=== PATIENT | male | born 1990 | race African-American/Black ===

== ENCOUNTER 2016-07-12 01:38 | Inpatient (IN) | payer MEDICAID, OTHER ==
[~2016-07-12] VITALS: Ht 175.3 cm; Wt 63.6 kg
[~2016-07-12 01:38] MED LIST: DIVA500T52 PO; DIVA500T69 PO; OLAN10TA6 PO; OLAN5Z PO; OMEP10 PO
[2016-07-12 02:07] LABS: BASOPHILS % (AUTO) 1.2 % (0.0-2.0); EOSINOPHILS % (AUTO) 2.7 % (1.0-6.0); HEMATOCRIT 44.4 % (41-53); HEMOGLOBIN 14.3 g/dL (13.5-17.5); LYMPHOCYTES # (AUTO) 3.4 K/uL (1.0-4.8); LYMPHOCYTES % (AUTO) 36.9 % (22.0-44.0); MEAN CORPUSCULAR HGB CONC 32.3 G/dL (31.0-37.0); MEAN CORPUSCULAR VOLUME 96 fL (80-100); MONOCYTES # (AUTO) 0.8 K/uL (0.1-1.0); MONOCYTES % (AUTO) 8.6 % (2.0-9.0); NEUTROPHILS # (AUTO) 4.7 K/uL (1.8-7.7); NEUTROPHILS % (AUTO) 50.6 % (40.0-70.0); PLATELET COUNT (AUTO) 141 K/uL (150-450); RED BLOOD CELL COUNT(AUTO) 4.63 MIL/uL (4.50-5.90); RED CELL DISTRIBUTION WIDTH 15.2 % (11.5-14.5); WHITE BLOOD COUNT (AUTO) 9.3 K/uL (4.5-11.0)
[2016-07-12 02:14] LABS: ANION GAP 7 mmol/L (8-16); CALCIUM, TOTAL 9.6 mg/dL (8.8-10.5); CARBON DIOXIDE 32 mmol/L (22-29); CHLORIDE 102 mmol/L (98-107); CREATININE 1.01 mg/dL (0.60-1.30); GLOMERULAR FILTR. RATE CALC > 60 mL/min (>60); POTASSIUM 4.3 mmol/L (3.5-5.1); SODIUM SERUM 141 mmol/L (136-145); UREA NITROGEN, BLOOD 13 mg/dL (7-18)
[2016-07-12 02:20] LABS: ALANINE AMINOTRANSFERASE 17 U/L (12-78); ALBUMIN 3.8 g/dL (3.4-5.0); ASPARTATE AMINOTRANSFERASE 16 U/L (15-37); BILIRUBIN,TOTAL 0.2 mg/dL (0.1-1.0); TOTAL PROTEIN, SERUM 7.9 g/dL (6.4-8.2); VALPROIC ACID 16 mcg/mL (50-100)
[2016-07-12] MEDS ORDERED: HALOPERIDOL 5 MG TABLET PO PRN (05:15)
[2016-07-12 05:58] LABS: APPEARANCE,URINE CLOUDY (CLEAR); GLUCOSE, URINE (UA) NEGATIVE (NEGATIVE); KETONES,URINE NEGATIVE (NEGATIVE); LEUKOCYTE ESTERASE ,URINE MODERATE (NEGATIVE); OCCULT BLOOD,URINE NEGATIVE (NEGATIVE); PH,URINE 6.5 (5.0-8.0); PROTEIN,URINE NEGATIVE (NEGATIVE)
[2016-07-12 06:02] LABS: ADD UA MICROSCOPIC YES
[2016-07-12 06:13] LABS: RBC,URINE 0-2 /HPF (0-2); SQUAMOUS EPITHELIAL CELL,UR Few /LPF (None Seen)
[2016-07-12] MEDS ORDERED: INFLUENZA VIRUS VACCINE QVS 2016-17 (3YR+)/PF 60 MCG/0.5 ML SYRINGE IM ONE (07:30)
[2016-07-12 07:33] VITALS: BP 121/72
[2016-07-12] MEDS: DIVALPROEX SODIUM 500 MG DR TABLET PO SCH (16:17)
[2016-07-12] MEDS: LEVOFLOXACIN 250 MG TABLET PO SCH (16:17)
[2016-07-12 16:18] VITALS: BP 119/66
[2016-07-12] MEDS: OLANZapine 10 MG TABLET PO SCH (22:01)
[2016-07-12] MEDS: ZOLPIDEM TARTRATE 10 MG TABLET PO PRN (22:01)
[2016-07-13 06:53] VITALS: BP 123/70
[2016-07-13 08:42] VITALS: BP 112/67
[2016-07-13] MEDS: DIVALPROEX SODIUM 500 MG DR TABLET PO SCH ×3 (09:43→17:00)
[2016-07-13] MEDS: LEVOFLOXACIN 250 MG TABLET PO SCH (09:43)
[2016-07-13] MEDS: LORazepam 2 MG TABLET PO PRN ×2 (09:43→20:21)
[2016-07-13 16:00] VITALS: BP 128/73
[2016-07-13] MEDS: ZOLPIDEM TARTRATE 10 MG TABLET PO PRN (20:21)
[2016-07-13] MEDS: OLANZapine 10 MG TABLET PO SCH (20:21)
[2016-07-14 06:33] VITALS: BP 109/63
[2016-07-14] MEDS: DIVALPROEX SODIUM 500 MG DR TABLET PO SCH ×3 (09:44→16:04)
[2016-07-14] MEDS: LEVOFLOXACIN 250 MG TABLET PO SCH (09:44)
[2016-07-14] MEDS: LORazepam 2 MG TABLET PO PRN ×2 (09:44→15:47)
[2016-07-14 16:00] VITALS: BP 127/79
[2016-07-14] MEDS: OLANZapine 10 MG TABLET PO SCH (20:43)
[2016-07-15 06:58] VITALS: BP 106/68
[2016-07-15] MEDS: LEVOFLOXACIN 250 MG TABLET PO SCH (08:09)
[2016-07-15] MEDS: DIVALPROEX SODIUM 500 MG DR TABLET PO SCH ×3 (08:09→17:09)
[2016-07-15] MEDS: LORazepam 2 MG TABLET PO PRN (08:09)
[2016-07-15 08:16] VITALS: BP 127/82
[2016-07-15] MEDS ORDERED: DIVA500T35 PO (15:12)
[2016-07-15] MEDS ORDERED: LEVO250 PO (15:13)
== END 2016-07-15 17:00 | disposition home or self-care (01) | DRG 750 ==
LOC: EMS 01:39 → B3A 05:00
PROVIDERS: ADMIT Psychiatry & Neurology Psychiatry; ATTEND Psychiatry & Neurology Psychiatry
DX: F20.0 Paranoid schizophrenia (principal); D69.6 Thrombocytopenia, unspecified; N39.0 Urinary tract infection, site not specified; J30.9 Allergic rhinitis, unspecified; K21.9 Gastro-esophageal reflux disease without esophagitis; F19.10 Other psychoactive substance abuse, uncomplicated; F12.10 Cannabis abuse, uncomplicated; Z79.899 Other long term (current) drug therapy
CPT/HCPCS: 87086; 90471; 99285; G0480

== ENCOUNTER 2019-07-17 15:13 | Inpatient (IN) | payer MEDICAID ==
[~2019-07-17] VITALS: Ht 175.3 cm; Wt 65.1 kg
[~2019-07-17 15:13] MED LIST changes: +DIVA-78 PO; -DIVA500T52 PO; -DIVA500T69 PO; +LEVO250T75 PO; -OLAN10TA6 PO; +OLAN5TAB40 PO; -OLAN5Z PO; -OMEP10 PO
[2019-07-17 15:16] VITALS: BP 133/91
[2019-07-17] MEDS ORDERED: QUET200T PO (16:17)
[2019-07-17 16:36] VITALS: BP 129/87
[2019-07-17] MEDS: LORazepam 2 MG TABLET PO PRN ×2 (17:17→21:17)
[2019-07-17] MEDS: HALOPERIDOL 5 MG TABLET PO PRN (17:18)
[2019-07-17] MEDS: ZOLPIDEM TARTRATE 10 MG TABLET PO PRN (20:32)
[2019-07-18 07:44] LABS: BASOPHILS % (AUTO) 0.5 % (0.0-2.0); EOSINOPHILS % (AUTO) 3.7 % (1.0-6.0); HEMATOCRIT 40.2 % (41-53); HEMOGLOBIN 13.3 g/dL (13.5-17.5); LYMPHOCYTES # (AUTO) 2.6 K/uL (1.0-4.8); LYMPHOCYTES % (AUTO) 50.9 % (22.0-44.0); MEAN CORPUSCULAR HEMOGLOBIN 30.4 pg (26.0-34.0); MEAN CORPUSCULAR HGB CONC 33.2 G/dL (31.0-37.0); MEAN CORPUSCULAR VOLUME 92 fL (80-100); MONOCYTES # (AUTO) 0.5 K/uL (0.1-1.0); MONOCYTES % (AUTO) 10.2 % (2.0-9.0); NEUTROPHILS # (AUTO) 1.8 K/uL (1.8-7.7); NEUTROPHILS % (AUTO) 34.7 % (40.0-70.0); PLATELET COUNT (AUTO) 183 K/uL (150-450); RED BLOOD CELL COUNT(AUTO) 4.38 MIL/uL (4.50-5.90); RED CELL DISTRIBUTION WIDTH 13.8 % (11.5-14.5)
[2019-07-18 08:09] VITALS: BP 117/66
[2019-07-18 08:18] LABS: ALANINE AMINOTRANSFERASE 16 U/L (12-78); ALBUMIN 3.5 g/dL (3.4-5.0); ALKALINE PHOSPHATASE 72 U/L (46-116); ANION GAP 7 mmol/L (8-16); ASPARTATE AMINOTRANSFERASE 13 U/L (15-37); BILIRUBIN,TOTAL 0.3 mg/dL (0.1-1.0); CALCIUM, TOTAL 9.4 mg/dL (8.8-10.5); CARBON DIOXIDE 29 mmol/L (22-29); CHLORIDE 104 mmol/L (98-107); CHOLESTEROL 125 mg/dL (131-200); CREATININE 0.98 mg/dL (0.60-1.30); FREE T4 (FREE THYROXINE) 0.96 ng/dL (0.76-1.46); GLOMERULAR FILTR. RATE CALC > 60 mL/min (>60); GLUCOSE,RANDOM 82 mg/dL (70-110); HDL CHOLESTEROL 61 mg/dL (40-60); LDL CHOL (CALC.) 59 mg/dL (0-130); POTASSIUM 4.8 mmol/L (3.5-5.1); SODIUM SERUM 140 mmol/L (136-145); THYROID STIMULATING HORMONE 1.05 uIU/mL (0.36-3.74); TOTAL PROTEIN, SERUM 6.5 g/dL (6.4-8.2); TRIGLYCERIDES 24 mg/dL (15-150); UREA NITROGEN, BLOOD 10 mg/dL (7-18)
[2019-07-18] MEDS ORDERED: IBUPROFEN 600 MG TABLET PO PRN (09:00)
[2019-07-18] MEDS ORDERED: BENZOCAINE/MENTHOL LOZENGE MM PRN (09:00)
[2019-07-18] MEDS ORDERED: BACITRACIN 28.4 GM OINTMENT TP PRN (09:00)
[2019-07-18] MEDS ORDERED: ONDANSETRON HCL 4 MG TABLET PO PRN (09:00)
[2019-07-18] MEDS ORDERED: DOCUSATE SODIUM 100 MG CAPSULE PO PRN (09:00)
[2019-07-18] MEDS ORDERED: ALBUTEROL SULFATE HFA 90 MCG/PUFF 8 GM INHALER IH PRN (09:00)
[2019-07-18] MEDS ORDERED: PETROLATUM,WHITE 28 GM JELLY TP PRN (09:00)
[2019-07-18] MEDS ORDERED: LOPERAMIDE HCL 2 MG CAPSULE PO PRN (09:00)
[2019-07-18] MEDS ORDERED: MAGNESIUM HYDROXIDE SUSPENSION 30 ML UDCUP PO PRN (09:00)
[2019-07-18] MEDS ORDERED: CloNIDine HCL 0.1 MG TABLET PO PRN (09:00)
[2019-07-18] MEDS ORDERED: ACETAMINOPHEN 325 MG TABLET PO PRN (09:00)
[2019-07-18] MEDS ORDERED: MAG HYDROX/AL HYDROX/SIMETH ES 30 ML SUSPENSION UDCUP PO PRN (09:00)
[2019-07-18] MEDS ORDERED: OMEPRAZOLE 20 MG CAPSULE PO PRN (09:00)
[2019-07-18] MEDS ORDERED: RisperiDONE MICROSPHERES 50 MG/2 ML SYRINGE IM ONE (11:15)
[2019-07-18] MEDS: LORazepam 2 MG TABLET PO PRN ×2 (11:45→16:38)
[2019-07-18] MEDS: HALOPERIDOL 5 MG TABLET PO PRN ×2 (11:45→16:38)
[2019-07-18] MEDS ORDERED: LORazepam 2 MG/ML VIAL IM ONE (13:00)
[2019-07-18] MEDS ORDERED: DiphenhydrAMINE HCL 50 MG/ML VIAL IM ONE (13:00)
[2019-07-18] MEDS ORDERED: HALOPERIDOL LACTATE 5 MG/ML VIAL IM ONE (13:00)
[2019-07-18 16:04] VITALS: BP 127/87
[2019-07-18] MEDS: BENZTROPINE MESYLATE 1 MG TABLET PO SCH (16:37)
[2019-07-18] MEDS: DIVALPROEX SODIUM 500 MG DR TABLET PO SCH (16:38)
[2019-07-18] MEDS: QUEtiapine FUMARATE 200 MG TABLET PO SCH (21:00)
[2019-07-18] MEDS: TraZODone HCL 50 MG TABLET PO SCH (21:00)
[2019-07-18] MEDS: HALOPERIDOL 10 MG TABLET PO SCH (21:00)
[2019-07-18] MEDS: OLANZapine 10 MG TABLET PO SCH (21:00)
[2019-07-19 05:44] VITALS: BP 112/68
[2019-07-19 08:27] VITALS: BP 114/70
[2019-07-19] MEDS: BENZTROPINE MESYLATE 1 MG TABLET PO SCH ×2 (08:39→16:06)
[2019-07-19] MEDS: DIVALPROEX SODIUM 500 MG DR TABLET PO SCH ×2 (08:39→16:06)
[2019-07-19] MEDS: LORazepam 2 MG TABLET PO PRN (16:06)
[2019-07-19 16:59] VITALS: BP 123/75
[2019-07-19] MEDS: OLANZapine 10 MG TABLET PO SCH (20:00)
[2019-07-19] MEDS: HALOPERIDOL 10 MG TABLET PO SCH (20:00)
[2019-07-19] MEDS: TraZODone HCL 50 MG TABLET PO SCH (20:00)
[2019-07-19] MEDS: QUEtiapine FUMARATE 200 MG TABLET PO SCH (20:00)
[2019-07-19] MEDS ORDERED: DiphenhydrAMINE HCL 50 MG/ML VIAL ONE (20:12)
[2019-07-19] MEDS ORDERED: HALOPERIDOL LACTATE 5 MG/ML VIAL ONE (20:12)
[2019-07-19] MEDS ORDERED: LORazepam 2 MG/ML VIAL ONE (20:13)
[2019-07-19] MEDS ORDERED: DiphenhydrAMINE HCL 50 MG/ML VIAL IM ONE (20:15)
[2019-07-19] MEDS ORDERED: HALOPERIDOL LACTATE 5 MG/ML VIAL IM ONE (20:15)
[2019-07-19] MEDS ORDERED: LORazepam 2 MG/ML VIAL IM ONE (20:15)
[2019-07-20 05:33] VITALS: BP 117/82
[2019-07-20] MEDS: BENZTROPINE MESYLATE 1 MG TABLET PO SCH ×2 (08:38→16:19)
[2019-07-20] MEDS: DIVALPROEX SODIUM 500 MG DR TABLET PO SCH ×2 (08:38→16:18)
[2019-07-20 08:39] VITALS: BP 127/68
[2019-07-20] MEDS: LORazepam 2 MG TABLET PO PRN ×2 (12:47→21:33)
[2019-07-20] MEDS: HALOPERIDOL 5 MG TABLET PO PRN (12:47)
[2019-07-20 16:00] VITALS: BP 140/78
[2019-07-20] MEDS: TraZODone HCL 50 MG TABLET PO SCH (20:38)
[2019-07-20] MEDS: HALOPERIDOL 10 MG TABLET PO SCH (20:38)
[2019-07-20] MEDS: QUEtiapine FUMARATE 200 MG TABLET PO SCH (20:38)
[2019-07-20] MEDS: OLANZapine 10 MG TABLET PO SCH (20:39)
[2019-07-20] MEDS: ZOLPIDEM TARTRATE 10 MG TABLET PO PRN (21:33)
[2019-07-21] MEDS: HALOPERIDOL 5 MG TABLET PO PRN (09:12)
[2019-07-21] MEDS: BENZTROPINE MESYLATE 1 MG TABLET PO SCH ×2 (09:12→16:14)
[2019-07-21] MEDS: LORazepam 2 MG TABLET PO PRN ×2 (09:12→16:14)
[2019-07-21] MEDS: DIVALPROEX SODIUM 500 MG DR TABLET PO SCH ×2 (09:12→16:14)
[2019-07-21 13:53] VITALS: BP 126/97
[2019-07-21 14:35] VITALS: BP 117/81
[2019-07-21 14:54] VITALS: BP 117/81
[2019-07-21 15:09] VITALS: BP 119/54
[2019-07-21 15:24] VITALS: BP 154/96
[2019-07-21 16:00] VITALS: BP 132/85
[2019-07-21] MEDS: TraZODone HCL 50 MG TABLET PO SCH (20:03)
[2019-07-21] MEDS: HALOPERIDOL 10 MG TABLET PO SCH (20:03)
[2019-07-21] MEDS: QUEtiapine FUMARATE 200 MG TABLET PO SCH (20:03)
[2019-07-21] MEDS: OLANZapine 10 MG TABLET PO SCH (20:03)
[2019-07-22] MEDS ORDERED: TRAZ-184 PO (05:55)
[2019-07-22] MEDS ORDERED: HALO10 PO (05:55)
[2019-07-22] MEDS ORDERED: BENZ1TAB10 PO (05:55)
[2019-07-22] MEDS ORDERED: OLAN10TA3 PO (05:55)
[2019-07-22] MEDS ORDERED: DIVA-78 PO (05:55)
[2019-07-22 08:18] VITALS: BP 128/72
[2019-07-22] MEDS: BENZTROPINE MESYLATE 1 MG TABLET PO SCH ×2 (08:57→16:21)
[2019-07-22] MEDS: DIVALPROEX SODIUM 500 MG DR TABLET PO SCH ×2 (08:57→16:21)
[2019-07-22] MEDS: HALOPERIDOL 5 MG TABLET PO PRN ×2 (11:10→16:21)
[2019-07-22 16:06] VITALS: BP 140/73
[2019-07-22] MEDS: LORazepam 2 MG TABLET PO PRN ×2 (16:21→20:33)
[2019-07-22] MEDS: OLANZapine 10 MG TABLET PO SCH (20:32)
[2019-07-22] MEDS: HALOPERIDOL 10 MG TABLET PO SCH (20:32)
[2019-07-22] MEDS: TraZODone HCL 50 MG TABLET PO SCH (20:32)
[2019-07-22] MEDS: QUEtiapine FUMARATE 200 MG TABLET PO SCH (20:32)
[2019-07-23 00:05] VITALS: BP 115/95
[2019-07-23 08:17] VITALS: BP 110/65
[2019-07-23] MEDS: DIVALPROEX SODIUM 500 MG DR TABLET PO SCH ×2 (08:43→17:30)
[2019-07-23] MEDS: BENZTROPINE MESYLATE 1 MG TABLET PO SCH ×2 (08:43→17:30)
[2019-07-23] MEDS: HALOPERIDOL 5 MG TABLET PO PRN (08:43)
[2019-07-23] MEDS: LORazepam 2 MG TABLET PO PRN (08:43)
[2019-07-23 16:10] VITALS: BP 152/78
[2019-07-23] MEDS ORDERED: INSULIN LISPRO 100 UNITS/ML SQ PRN (17:30)
[2019-07-23] MEDS ORDERED: GLUCAGON,HUMAN RECOMBINANT 1 MG VIAL IM PRN (17:30)
[2019-07-23] MEDS: QUEtiapine FUMARATE 200 MG TABLET PO SCH (21:13)
[2019-07-23] MEDS: HALOPERIDOL 10 MG TABLET PO SCH (21:13)
[2019-07-23] MEDS: OLANZapine 10 MG TABLET PO SCH (21:14)
[2019-07-23] MEDS: TraZODone HCL 50 MG TABLET PO SCH (21:14)
[2019-07-23 21:33] LABS: GLUCOMETER DEV NAME(LOC) BV3S.; GLUCOSE,POINT OF CARE 131 MG/DL (70-110)
[2019-07-24 01:00] VITALS: BP 128/86
[2019-07-24] MEDS: ZOLPIDEM TARTRATE 10 MG TABLET PO PRN (01:01)
[2019-07-24 05:46] VITALS: BP 132/63
[2019-07-24] MEDS: DIVALPROEX SODIUM 500 MG DR TABLET PO SCH ×2 (08:11→16:13)
[2019-07-24] MEDS: BENZTROPINE MESYLATE 1 MG TABLET PO SCH ×2 (08:11→16:13)
[2019-07-24 08:16] VITALS: BP 126/82
[2019-07-24 11:27] LABS: GLUCOMETER DEV NAME(LOC) BV3S.; GLUCOSE,POINT OF CARE 68 MG/DL (70-110)
[2019-07-24 16:04] VITALS: BP 117/74
[2019-07-24] MEDS: LORazepam 2 MG TABLET PO PRN (16:13)
[2019-07-24] MEDS: HALOPERIDOL 5 MG TABLET PO PRN (16:13)
[2019-07-24 17:09] LABS: GLUCOMETER DEV NAME(LOC) BV3S.; GLUCOSE,POINT OF CARE 114 MG/DL (70-110)
[2019-07-24] MEDS: HALOPERIDOL 10 MG TABLET PO SCH (20:29)
[2019-07-24] MEDS: QUEtiapine FUMARATE 200 MG TABLET PO SCH (20:29)
[2019-07-24] MEDS: OLANZapine 10 MG TABLET PO SCH (20:29)
[2019-07-24] MEDS: TraZODone HCL 50 MG TABLET PO SCH (20:30)
[2019-07-24 21:19] LABS: GLUCOMETER DEV NAME(LOC) BV3S.; GLUCOSE,POINT OF CARE 103 MG/DL (70-110)
[2019-07-25 05:50] VITALS: BP 121/78
[2019-07-25 08:30] VITALS: BP 133/96
[2019-07-25] MEDS: DIVALPROEX SODIUM 500 MG DR TABLET PO SCH ×2 (08:40→16:11)
[2019-07-25] MEDS: BENZTROPINE MESYLATE 1 MG TABLET PO SCH ×2 (08:40→16:11)
[2019-07-25 11:10] LABS: GLUCOMETER DEV NAME(LOC) BV3S.; GLUCOSE,POINT OF CARE 110 MG/DL (70-110)
[2019-07-25 16:00] VITALS: BP 137/90
[2019-07-25] MEDS: LORazepam 2 MG TABLET PO PRN (16:11)
[2019-07-25] MEDS: HALOPERIDOL 5 MG TABLET PO PRN (16:11)
[2019-07-25] MEDS: QUEtiapine FUMARATE 200 MG TABLET PO SCH (20:29)
[2019-07-25] MEDS: HALOPERIDOL 10 MG TABLET PO SCH (20:30)
[2019-07-25] MEDS: TraZODone HCL 50 MG TABLET PO SCH (20:30)
[2019-07-25] MEDS: OLANZapine 10 MG TABLET PO SCH (20:30)
[2019-07-26] MEDS: DIVALPROEX SODIUM 500 MG DR TABLET PO SCH ×2 (08:57→16:18)
[2019-07-26] MEDS: BENZTROPINE MESYLATE 1 MG TABLET PO SCH ×2 (08:57→16:19)
[2019-07-26 10:06] VITALS: BP 122/82
== END 2019-07-26 17:30 | disposition home or self-care (01) | DRG 750 ==
LOC: B3A 15:58
PROVIDERS: ADMIT Psychiatry & Neurology Psychiatry; ATTEND Psychiatry & Neurology Psychiatry
DX: F20.0 Paranoid schizophrenia (principal); F41.9 Anxiety disorder, unspecified; G47.00 Insomnia, unspecified; K59.00 Constipation, unspecified
CPT/HCPCS: 83036; 84439; 84443; J1200; J1630; J2060; J2794

== ENCOUNTER 2019-12-10 17:21 | Inpatient (IN) | payer MEDICAID, OTHER ==
[~2019-12-10] VITALS: Ht 172.7 cm; Wt 69.9 kg
[~2019-12-10 17:21] MED LIST changes: +BENZ1TAB10 PO; +DIVA-112 PO; -DIVA-78 PO; +HALO10 PO; -LEVO250T75 PO; +OLAN10TA3 PO; -OLAN5TAB40 PO; +QUET200T PO; +TRAZ-184 PO
[2019-12-10 18:52] LABS: BASOPHILS % (AUTO) 0.9 % (0.0-2.0); EOSINOPHILS % (AUTO) 3.3 % (1.0-6.0); HEMATOCRIT 39.3 % (41-53); HEMOGLOBIN 13.1 g/dL (13.5-17.5); LYMPHOCYTES # (AUTO) 3.1 K/uL (1.0-4.8); LYMPHOCYTES % (AUTO) 41.1 % (22.0-44.0); MEAN CORPUSCULAR HEMOGLOBIN 31.2 pg (26.0-34.0); MEAN CORPUSCULAR HGB CONC 33.3 G/dL (31.0-37.0); MEAN CORPUSCULAR VOLUME 94 fL (80-100); MONOCYTES # (AUTO) 0.5 K/uL (0.1-1.0); MONOCYTES % (AUTO) 6.6 % (2.0-9.0); NEUTROPHILS # (AUTO) 3.7 K/uL (1.8-7.7); NEUTROPHILS % (AUTO) 48.1 % (40.0-70.0); PLATELET COUNT (AUTO) 168 K/uL (150-450); RED CELL DISTRIBUTION WIDTH 13.6 % (11.5-14.5)
[2019-12-10] MEDS ORDERED: HALOPERIDOL LACTATE 5 MG/ML VIAL IM ONE (19:00)
[2019-12-10] MEDS ORDERED: DiphenhydrAMINE HCL 50 MG/ML VIAL IM ONE (19:00)
[2019-12-10] MEDS ORDERED: LORazepam 2 MG/ML VIAL IM ONE (19:00)
[2019-12-10 19:07] LABS: ANION GAP 4 mmol/L (8-16); CALCIUM, TOTAL 9.3 mg/dL (8.8-10.5); CARBON DIOXIDE 31 mmol/L (22-29); CHLORIDE 104 mmol/L (98-107); CREATININE 0.97 mg/dL (0.60-1.30); GLOMERULAR FILTR. RATE CALC > 60 mL/min (>60); GLUCOSE,RANDOM 105 mg/dL (70-110); POTASSIUM 4.1 mmol/L (3.5-5.1); SODIUM SERUM 139 mmol/L (136-145); UREA NITROGEN, BLOOD 9 mg/dL (7-18)
[2019-12-10 19:15] LABS: ALANINE AMINOTRANSFERASE 21 U/L (12-78); ALBUMIN 3.6 g/dL (3.4-5.0); ALKALINE PHOSPHATASE 73 U/L (46-116); ASPARTATE AMINOTRANSFERASE 25 U/L (15-37); BILIRUBIN,TOTAL 0.1 mg/dL (0.1-1.0); TOTAL PROTEIN, SERUM 7.1 g/dL (6.4-8.2)
[2019-12-10 21:06] VITALS: BP 135/71
[2019-12-11 05:20] VITALS: BP 126/70
[2019-12-11 08:30] VITALS: BP 125/83
[2019-12-11] MEDS: HALOPERIDOL 5 MG TABLET PO PRN ×2 (09:07→16:39)
[2019-12-11] MEDS: LORazepam 2 MG TABLET PO PRN ×2 (09:07→16:39)
[2019-12-11 16:09] VITALS: BP 131/91
[2019-12-11] MEDS: DIVALPROEX SODIUM 500 MG DR TABLET PO SCH (16:39)
[2019-12-11] MEDS: BENZTROPINE MESYLATE 1 MG TABLET PO SCH (16:39)
[2019-12-11] MEDS: QUEtiapine FUMARATE 200 MG TABLET PO SCH (20:25)
[2019-12-11] MEDS: OLANZapine 10 MG TABLET PO SCH (20:25)
[2019-12-11] MEDS: TraZODone HCL 50 MG TABLET PO SCH (20:25)
[2019-12-12 06:18] VITALS: BP 115/78
[2019-12-12 08:09] LABS: CHOL/HDL RATIO 2.4 (4.2-7.3)
[2019-12-12] MEDS: DIVALPROEX SODIUM 500 MG DR TABLET PO SCH ×2 (08:38→16:41)
[2019-12-12] MEDS: BENZTROPINE MESYLATE 1 MG TABLET PO SCH ×2 (08:38→16:42)
[2019-12-12] MEDS: LORazepam 2 MG TABLET PO PRN ×2 (08:38→16:42)
[2019-12-12 08:45] VITALS: BP 114/69
[2019-12-12 16:14] VITALS: BP 110/73
[2019-12-12] MEDS: HALOPERIDOL 5 MG TABLET PO PRN (16:42)
[2019-12-12] MEDS: OLANZapine 10 MG TABLET PO SCH (20:13)
[2019-12-12] MEDS: QUEtiapine FUMARATE 200 MG TABLET PO SCH (20:14)
[2019-12-12] MEDS: TraZODone HCL 50 MG TABLET PO SCH (20:14)
[2019-12-13 06:20] VITALS: BP 114/70
[2019-12-13] MEDS: HALOPERIDOL 5 MG TABLET PO PRN ×2 (08:08→13:07)
[2019-12-13] MEDS: DIVALPROEX SODIUM 500 MG DR TABLET PO SCH ×2 (08:08→16:26)
[2019-12-13] MEDS: LORazepam 2 MG TABLET PO PRN ×3 (08:08→18:11)
[2019-12-13] MEDS: BENZTROPINE MESYLATE 1 MG TABLET PO SCH ×2 (08:09→16:26)
[2019-12-13 08:19] VITALS: BP 124/86
[2019-12-13] MEDS ORDERED: RisperiDONE MICROSPHERES 50 MG/2 ML SYRINGE IM SCH (14:30)
[2019-12-13 16:40] VITALS: BP 138/90
[2019-12-13] MEDS: OLANZapine 10 MG TABLET PO SCH (20:58)
[2019-12-13] MEDS: TraZODone HCL 50 MG TABLET PO SCH (20:58)
[2019-12-13] MEDS: QUEtiapine FUMARATE 200 MG TABLET PO SCH (20:58)
[2019-12-14] MEDS: LORazepam 2 MG TABLET PO PRN (08:20)
[2019-12-14] MEDS: BENZTROPINE MESYLATE 1 MG TABLET PO SCH ×2 (08:20→16:38)
[2019-12-14] MEDS: DIVALPROEX SODIUM 500 MG DR TABLET PO SCH ×2 (08:20→16:38)
[2019-12-14 08:36] VITALS: BP 132/87
[2019-12-14 16:15] VITALS: BP 130/81
[2019-12-14] MEDS: TraZODone HCL 50 MG TABLET PO SCH (20:19)
[2019-12-14] MEDS: QUEtiapine FUMARATE 200 MG TABLET PO SCH (20:19)
[2019-12-14] MEDS: OLANZapine 10 MG TABLET PO SCH (20:20)
[2019-12-15 05:27] VITALS: BP 122/72
[2019-12-15 08:28] VITALS: BP 125/75
[2019-12-15] MEDS: DIVALPROEX SODIUM 500 MG DR TABLET PO SCH ×2 (08:45→16:12)
[2019-12-15] MEDS: BENZTROPINE MESYLATE 1 MG TABLET PO SCH ×2 (08:45→16:13)
[2019-12-15] MEDS: LORazepam 2 MG TABLET PO PRN ×2 (08:45→16:13)
[2019-12-15] MEDS: HALOPERIDOL 5 MG TABLET PO PRN (13:00)
[2019-12-15 16:28] VITALS: BP 142/87
[2019-12-15] MEDS: QUEtiapine FUMARATE 200 MG TABLET PO SCH (20:06)
[2019-12-15] MEDS: OLANZapine 10 MG TABLET PO SCH (20:07)
[2019-12-15] MEDS: TraZODone HCL 50 MG TABLET PO SCH (20:07)
[2019-12-16 08:21] VITALS: BP 128/74
[2019-12-16] MEDS: MULTIVITAMINS WITH IRON TABLET PO SCH (09:28)
[2019-12-16] MEDS: DIVALPROEX SODIUM 500 MG DR TABLET PO SCH ×2 (09:28→16:01)
[2019-12-16] MEDS: BENZTROPINE MESYLATE 1 MG TABLET PO SCH ×2 (09:28→16:01)
[2019-12-16] MEDS: HALOPERIDOL 5 MG TABLET PO PRN (16:01)
[2019-12-16] MEDS: LORazepam 2 MG TABLET PO PRN (16:01)
[2019-12-16 16:17] VITALS: BP 123/82
[2019-12-16] MEDS: OLANZapine 10 MG TABLET PO SCH (20:45)
[2019-12-16] MEDS: QUEtiapine FUMARATE 200 MG TABLET PO SCH (20:46)
[2019-12-16] MEDS: TraZODone HCL 50 MG TABLET PO SCH (20:49)
[2019-12-17 01:43] VITALS: BP 120/97
[2019-12-17] MEDS: LORazepam 2 MG TABLET PO PRN ×2 (02:59→16:21)
[2019-12-17] MEDS: ZOLPIDEM TARTRATE 10 MG TABLET PO PRN ×2 (02:59→20:31)
[2019-12-17] MEDS: MULTIVITAMINS WITH IRON TABLET PO SCH (08:34)
[2019-12-17] MEDS: BENZTROPINE MESYLATE 1 MG TABLET PO SCH ×2 (08:34→16:21)
[2019-12-17] MEDS: DIVALPROEX SODIUM 500 MG DR TABLET PO SCH ×2 (08:35→16:21)
[2019-12-17 12:30] VITALS: BP 127/67
[2019-12-17 17:35] VITALS: BP 139/85
[2019-12-17] MEDS: OLANZapine 10 MG TABLET PO SCH (20:31)
[2019-12-17] MEDS: QUEtiapine FUMARATE 200 MG TABLET PO SCH (20:31)
[2019-12-17] MEDS: TraZODone HCL 50 MG TABLET PO SCH (20:31)
[2019-12-18 03:49] VITALS: BP 124/68
[2019-12-18 09:51] VITALS: BP 136/98
[2019-12-18] MEDS: MULTIVITAMINS WITH IRON TABLET PO SCH (09:56)
[2019-12-18] MEDS: BENZTROPINE MESYLATE 1 MG TABLET PO SCH ×2 (09:56→16:24)
[2019-12-18] MEDS: DIVALPROEX SODIUM 500 MG DR TABLET PO SCH ×2 (09:56→16:24)
[2019-12-18 16:20] VITALS: BP 127/76
[2019-12-18] MEDS: HALOPERIDOL 5 MG TABLET PO PRN (16:24)
[2019-12-18] MEDS: LORazepam 2 MG TABLET PO PRN (16:24)
[2019-12-18] MEDS: OLANZapine 10 MG TABLET PO SCH (20:25)
[2019-12-18] MEDS: QUEtiapine FUMARATE 200 MG TABLET PO SCH (20:25)
[2019-12-18] MEDS: ZOLPIDEM TARTRATE 10 MG TABLET PO PRN (20:25)
[2019-12-18] MEDS: TraZODone HCL 50 MG TABLET PO SCH (20:25)
[2019-12-19 05:11] VITALS: BP 120/81
[2019-12-19] MEDS: DIVALPROEX SODIUM 500 MG DR TABLET PO SCH (08:22)
[2019-12-19] MEDS: BENZTROPINE MESYLATE 1 MG TABLET PO SCH (08:22)
[2019-12-19] MEDS: MULTIVITAMINS WITH IRON TABLET PO SCH (08:22)
[2019-12-19 08:29] VITALS: BP 142/82
[2019-12-19] MEDS ORDERED: RISPC50 IM (11:04)
== END 2019-12-19 13:00 | disposition home or self-care (01) | DRG 885 ==
LOC: EMS 17:26 → B3A 21:00
PROVIDERS: ADMIT Psychiatry & Neurology Psychiatry; ATTEND Psychiatry & Neurology Psychiatry
DX: F20.0 Paranoid schizophrenia (principal); F12.90 Cannabis use, unspecified, uncomplicated; D64.9 Anemia, unspecified; K21.9 Gastro-esophageal reflux disease without esophagitis; D69.6 Thrombocytopenia, unspecified; Z79.899 Other long term (current) drug therapy
CPT/HCPCS: G0480; J1200; J1630; J2060; J2794